=== PATIENT | female | born 2000 | race Hispanic/Latino ===

== ENCOUNTER 2023-11-18 06:23 | Day surgery (SDC) | payer BC, SELFPAY ==
[2023-11-14 09:25] VITALS: BMI 35.1
[2023-11-14 10:13] LABS: Hemoglobin 11.7 g/dL (12.0-16.0)
[2023-11-14 10:20] LABS: HCG, Urine Qualitative Screen Negative
[2023-11-18] VITALS (12 sets, daily range): BP systolic 109–132; BP diastolic 76–93; BMI 35.1
[2023-11-18] MEDS: NORMOSOL-R 1000 IV (07:32)
[2023-11-18] MEDS: DILAUDID 0.25 MG IV ×2 (09:32→10:05)
--- NOTE | 2023-11-18 10:00 | W.PN.UPDATE ---
Update Note
Progress Note Update
pt c/o tongue soreness, initially posteriorly and midline, now R>L anteriorly.
exam shows some mild edema and tenderness of R>L lateral anterior tongue where it was compressed by retractor. no bleeding or laceration.
ice chips should be helpful, pt received decadron
--- NOTE | 2023-11-18 10:10 | PTCARENOTE ---
Addendum note in PACU 0915 Patient arrived very anxious/tearful reporting 'unable to breathe' . VSS/oxygenation on 8L simple mask 95% increased to 10L for comfort. Lungs CTA throughout, [employer] at bedside and emotional support rendered. Patient calming
down and began to C/O B/L tongue pain which escalated to tearfulness and began reporting difficulty breathing again, however oxygenation 98%, color good , lungs remain clear. Spitting out saliva and given yankuer to orally suction which seemed to
have calmed patient. Dr Madrigal evaluated patient at bedside. Patient tongue with slight indentation on right side, no bleeding noted recommended eval by Dr Douglass who saw patient in PACU and no further orders required other then ice chips for
comfort. Will manage pain with ordered pain meds.
[2023-11-18] MEDS: ROXICODONE ORAL SOLUTION 5 MG PO (10:54)
--- NOTE | 2023-11-18 11:06 | PTCARENOTE ---
Patient had pain in PACU on the tongue. Patient has a line on the tongue where she is having pain possibly from retractor. Both Dr. Plunkett and Mary looked at the area in PACU. Patient medicated on arrival to [facility] with liquid oxycodone. Will monitor
patient.
== END 2023-11-18 12:13 | disposition home or self-care (01) ==
LOC: SDS 06:23
PROVIDERS: ATTENDING PHYSICIAN Otolaryngology; FAMILY PHYSICIAN Family Medicine
DX: J35.3 Hypertrophy of tonsils with hypertrophy of adenoids (principal); J35.01 Chronic tonsillitis; R13.10 Dysphagia, unspecified
CPT/HCPCS: 42821; 88304; 36415; 81025; 85018

== ENCOUNTER 2023-11-25 11:21 | Emergency (ER) | payer BC, SELFPAY ==
[2023-11-25 11:23] VITALS: BP 128/79
[2023-11-25 12:36] VITALS: BMI 36.1
--- NOTE | 2023-11-25 12:36 | ED.GENMED ---
History of Present Illness
General
Chief Complaint: Throat Problem
Source: patient and records
Time Seen by Provider: 11/25/23 12:26
History of Present Illness
History of Present Illness:
23yoF with a history of depression presenting with her mother for evaluation of dysphagia. Patient underwent tonsillectomy on 11/18/[address] Hernandez. She was seen in the office 4 days ago for pain and difficulty swallowing. She was started on a
Medrol dose pack at that time for uvular swelling. Patient has been having extreme pain which seems to occur in the mornings and gradually improve throughout the day. She is also having trouble swallowing. She was only able to swallow 1 pill of
ibuprofen this morning instead of her normal 3. Mother states that she has been spitting up a lot. She has been taking Vicodin without much relief. No fevers.
Past History
Past History
ED Past Medical History: None
ED Past Surgical History: None
Phy Exam
General Physical Exam
General Presentation: well appearing and no apparent distress
General age: appears stated age
General Skin: warm and dry
General Habitus: normal
General Mental: alert
ENT Exam
ENT Exam: other (Eschar noted to tonsillectomy beds bilaterally. No bleeding noted. Uvula midline. No trismus. Tolerating oral secretions. )
Cardiovascular Exam
Cardiovascular Exam: regular rate/rhythm
Pulmonary Exam
Pulmonary Exam: lungs clear, no respiratory distress, no crackles and no wheezing
Skin Exam
Skin Exam: normal color and warm/dry
Psychiatric Exam
Psychiatric Exam: normal mood/affect
Course
Orders/Labs/Results
Orders:
Orders
11/25/23 12:36
0.9% Sodium Chloride 1000 ml [Nss] 1,000 ml IV BOLUS
Ketorolac [Toradol] 15 mg IV NOW STA
Test Result ONCE
11/25/23 13:14
Dexamethasone Sod Phosphate [Decadron] 10 mg IV NOW STA
11/25/23 13:37
Complete Blood Count/With Diff Urgent
Comprehensive Metabolic Panel Urgent
HCG, Serum Qualitative Screen Urgent
Abnormal Lab Results
11/25/23
13:37
WBC 15.7 H 10^3/uL
(4.8-10.8)
Hgb 11.9 L g/dL
(12.0-16.0)
Hct 35.6 L %
(37.0-47.0)
Plt Count 415 H 10^3/uL
(130-400)
Abs Immat Gran (auto) 0.1 H 10^3/uL
(0-0.05)
Absolute Neuts (auto) 11.0 H 10^3/uL
(1.4-6.5)
Absolute Lymphs (auto) 3.5 H 10^3/uL
(1.2-3.4)
Absolute Monos (auto) 1.1 H 10^3/uL
(0.1-0.6)
Glucose 101 H mg/dl
(70-99)
AST 50 H U/L
(14-36)
ALT 94 H U/L
(0-35)
11/25/23 13:37
11/25/23 13:37
Vital Signs
Initial and Last Documented VS:
Initial Vital Signs
Temp Pulse Resp BP Pulse Ox
98.0 F 97 18 128/79 96
11/25/23 11:23 11/25/23 11:23 11/25/23 11:23 11/25/23 11:23 11/25/23 11:23
Last Documented Vital Signs
Temp Pulse Resp BP Pulse Ox
98.0 F 92 18 129/88 97
11/25/23 11:23 11/25/23 13:19 11/25/23 13:19 11/25/23 13:19 11/25/23 14:14
MDM/Problems Addressed
Differential Diagnosis Includes:
23yoF here with sore throat and dysphagia. S/p tonsillectomy 1 week ago. She is afebrile and hemodynamically stable. She is non-toxic appearing. Eschar noted to tonsillectomy beds. No bleeding or overt signs of infection. Patient tolerating oral
secretions. Differential diagnosis includes but is not limited to: post-tonsillectomy pain, dehydration, FABIENNE
Initial ED plan: Check CBC, CMP, and HCG. IV Toradol and fluid bolus. Will discuss with ENT.
*Critical Care Note
Total Time (30-74mins, 75-104mins- exclusive of procedures): Not Applicable
Update Note
Update Note:
Labs reveal a leukocytosis with WBC of 15.7 which is nonspecific, possibly 2/2 steroid use. Mild transaminitis also noted. Discussed case with Dr. Hill, ENT, who recommends 10mg Decadron. Patient should start to improve in 48 hours per ENT.
Patient feeling significantly improved on reassessment. She was able to tolerate PO fluids. She is stable for discharge. Supportive care discussed. Advised f/u with ENT. ED return precautions discussed. She was discharged in stable condition.
ED Attending Note
-
Portions of this chart may have been created with voice recognition software.� Occasional wrong word or��sound alike� substitutions may have occurred due to the inherent limitations of voice recognition software.
Discharge Plan
Departure
Patient Disposition: Home (Routine Discharge)
Date of Disposition: 11/25/23
Time of Disposition: 15:42
Patient with high blood pressure during this ER visit?: No
Discharge Problem:
Difficulty swallowing, Post-tonsillectomy pain
Instructions: Sore Throat, Adult (DC)
Prescriptions:
No Action
fluticasone propion-salmeterol [Advair HFA] 1 PUFF HFA aerosol inhaler
2 puff inhalation R BID
fexofenadine-pseudoephedrine [Marisol-D 24 Hour] 1 EACH tablet extended release 24 hr
1 ea PO PRN PRN (Reason: allergy)
norethindrone ac-eth estradiol [June04/13 ()] 1 TAB tablet
1 tab PO DAILY
albuterol sulfate [ProAir HFA] 90 mcg/actuation Hfa Aerosol Inhaler
2 puff INHALATION Q6H PRN (Reason: SOB)
loratadine 10 mg Tablet
10 mg PO DAILY PRN (Reason: allergy)
alprazolam 0.5 mg Tablet
0.5 mg PO PRN PRN (Reason: panic attack)
hydroxyzine HCl 25 mg Tablet
25 mg PO HS
dextroamphetamine-amphetamine [Adderall XR] 15 mg Capsule,Extended Release 24hr
15 mg PO DAILY
desvenlafaxine 100 mg Tablet Extended Release 24 Hr
100 mg PO HS
Wegovy 1 mg/0.5 mL Pen Injector
1 mg SC QWEEK
Rx Instructions:
Q SATURDAY
sodium fluoride-pot nitrate [PreviDent 5000 Enamel Protect] 1.1-5 % Paste
1 applic DENTAL DAILY
Patient Comments:
Per patient she has not starting using this yet.
hydrocodone-acetaminophen 5-325 mg tablet
1 - 2 tab PO Q4HPRN PRN (Reason: pain) Qty: 15 0RF
ondansetron 4 mg tablet,disintegrating
4 mg PO Q8HPRN PRN (Reason: nausea) Qty: 5 1RF
Referrals:
Zohaib Mcleod MD [Family Provider] -
Agapito Hernandez MD [Active] -
Activity Restrictions/Additional Instructions:
Continue Medrol dose pack. Take Tylenol and ibuprofen as needed for pain. Drink plenty of fluids.
Please follow-up with your ENT doctor. Return to the ER with any worsening symptoms or inability to swallow.
Interventions
Interventions:
*Risk Screen - Suicide Last Done: 11/25/23 13:19
*General Assessment Last Done: 11/25/23 13:19
*Neglect/Abuse Screening Last Done: 11/25/23 13:19
ED- Fall Risk Assessment Last Done: 11/25/23 13:19
*ED COVID-19 Vaccine History Last Done: 11/25/23 13:19
*Nursing Disposition Last Done: 11/25/23 16:28
ED-EENT Assessment Last Done: 11/25/23 13:19
ED- Pulmonary Assessment Last Done: 11/25/23 13:19
Discharge Date and Time
Discharge Date/Time: 11/25/23 16:28
Print Language: PASHTO
[2023-11-25 13:19] VITALS: BP 129/88
[2023-11-25] MEDS: TORADOL 15 MG IV (13:38)
[2023-11-25] MEDS: NSS 1000 IV (13:38)
[2023-11-25] MEDS: DECADRON 10 MG IV (13:39)
[2023-11-25 13:57] LABS: % Basophils 0.3 % (0-2); % Eosinophils 0.4 % (0-6); % Immature Granulocytes 0.3 % (0-0.5); % Monocytes 6.7 % (1.7-9.3); % Neutrophils 70.3 % (42.2-75.2); Absolute Basophils 0.1 10^3/uL (0-0.2); Absolute Eosinophils 0.1 10^3/uL (0-0.7); Absolute Immature Granulocytes 0.1 10^3/uL (0-0.05); Absolute Lymphocytes 3.5 10^3/uL (1.2-3.4); Absolute Monocytes 1.1 10^3/uL (0.1-0.6); Hematocrit 35.6 % (37.0-47.0); Hemoglobin 11.9 g/dL (12.0-16.0); Mean Corp Hgb Conc. 33.4 g/dL (33.0-37.0); Mean Corpuscular Hgb 27.4 pg (27.0-31.0); Mean Corpuscular Volume 81.8 fL (81.0-99.0); Mean Platelet Volume 9.3 fL (7.4-10.4); Nucleated Red Blood Cells % 0 %; Platelet Count 415 10^3/uL (130-400); Red Blood Cell Count 4.35 10^6/uL (4.20-5.40); Red Cell Dist. Width 14.4 % (11.5-14.5); White Blood Cell Count 15.7 10^3/uL (4.8-10.8)
[2023-11-25 14:09] LABS: HCG, Serum Qualitative Screen Negative
[2023-11-25 14:21] LABS: ALT (SGPT) 94 U/L (0-35); AST (SGOT) 50 U/L (14-36); Alkaline Phosphatase 90 U/L (38-126); Blood Urea Nitrogen 13 mg/dl (7-17); Calcium 9.9 mg/dl (8.4-10.2); Carbon Dioxide 24 mmol/L (22-30); Chloride 105 mmol/L (98-107); Estimated Creatinine Clearance 118 ml/min; Glucose 101 mg/dl (70-99); Potassium 4.7 mmol/L (3.5-5.1); Sodium 141 mmol/L (135-145); Total Bilirubin 0.5 mg/dl (0.2-1.3); Total Protein 7.4 g/dl (6.3-8.2); eGFR > 60.00
== END 2023-11-25 16:28 | disposition home or self-care (01) ==
LOC: EMR 11:21
PROVIDERS: Physician Assistant; EMERGENCY PHYSICIAN Emergency Medicine
DX: R13.10 Dysphagia, unspecified (principal); G89.18 Other acute postprocedural pain; Z90.89 Acquired absence of other organs
CPT/HCPCS: 99284; 96374; 96375; 96361; 80053; 84703; 85025